=== PATIENT | female | born 1975 ===

== ENCOUNTER 2017-09-28 19:39 | Emergency (ER) | payer SELFPAY ==
[2017-09-28 20:05] VITALS: RESP 18; TEMP 98.1
[2017-09-28 20:07] VITALS: BMI 24.1
[2017-09-28] MEDS ORDERED: Oxycodone/Acetaminophen 5/325 mg Tab PO STA (20:35)
--- NOTE | 2017-09-28 20:38 | ED PDOC ---
Arrival/HPI - General Time Seen by Provider: 09/28/17 20:13 Historian: Patient - History of Present Illness Narrative History of Present Illness (Text): 09/28/17 20:34 Rachel Tanner is a 42 year old female complaining of a headache for the past 3 weeks. Patient is visiting from [place] and has had her headache since she came 3 weeks ago. Patient went to a medical clinic today that her [facility] insurance covered and was given 1 tablet of Captopril to some relief but then was directed to the emergency department for further evaluation. Patient denies any medical or family history of hypertension. No other complaints offered at this time. Time/Duration: < month Symptom Course: Unchanged Activities at Onset: Light Context: Home Past Medical History - Provider Review Nursing Documentation Reviewed: Yes Family/Social History - Physician Review Nursing Documentation Reviewed: Yes Family/Social History: No Known Family HX Allergies/Home Meds Allergies/Adverse Reactions: Allergies No Known Allergies Allergy (Verified 09/28/17 20:33) Review of Systems - Physician Review All systems were reviewed & negative as marked: Yes - Review of Systems Constitutional: absent: Fevers, Night Sweats Eyes: absent: Vision Changes ENT: absent: Hearing Changes Respiratory: absent: SOB, Cough Cardiovascular: absent: Chest Pain Gastrointestinal: absent: Abdominal Pain Genitourinary Female: absent: Dysuria, Frequency Musculoskeletal: absent: Arthralgias Skin: absent: Rash, Pruritis Neurological: Headache Endocrine: absent: Diaphoresis Hemo/Lymphatic: absent: Adenopathy Psychiatric: absent: Anxiety, Depression Physical Exam Vital Signs Reviewed: Yes Vital Signs Temp Pulse Resp BP Pulse Ox 09/28/17 22:01 74 18 134/98 H 100 09/28/17 20:04 98.1 F 88 18 148/92 H 99 Temperature: Afebrile Blood Pressure: Hypertensive Pulse: Regular Respiratory Rate: Normal Appearance: Positive for: Well-Appearing, Non-Toxic, Comfortable Pain Distress: None Mental Status: Positive for: Alert and Oriented X 3 - Systems Exam Head: Present: Atraumatic, Normocephalic Pupils: Present: PERRL Extroacular Muscles: Present: EOMI Conjunctiva: Present: Normal Mouth: Present: Moist Mucous Membranes Neck: Present: Normal Range of Motion Respiratory/Chest: Present: Clear to Auscultation, Good Air Exchange. No: Respiratory Distress, Accessory Muscle Use Cardiovascular: Present: Regular Rate and Rhythm, Normal S1, S2. No: Murmurs Abdomen: No: Tenderness, Distention, Peritoneal Signs Back: Present: Normal Inspection Upper Extremity: Present: Normal Inspection. No: Cyanosis, Edema Lower Extremity: Present: Normal Inspection. No: Edema Neurological: Present: GCS=15, CN II-XII Intact, Speech Normal Skin: Present: Warm, Dry, Normal Color. No: Rashes Psychiatric: Present: Alert, Oriented x 3, Normal Insight, Normal Concentration Medical Decision Making ED Course and Treatment: 09/28/17 20:39 Impression: 42 year old female complaining of a headache for the past 3 weeks. Plan: -- Flexeril, Motrin, Zofran, and Percocet -- Head CT w/o contrast -- Reassess and disposition Progress Notes: EXAM: CT Head Without Intravenous Contrast Dictated and Authenticated by: Wendy Eduardo MD 09/28/2017 9:37 PM IMPRESSION: No acute findings. - RAD Interpretation Radiology Orders: 09/28/17 21:14 HEAD W/O CONTRAST [CT] Stat - Medication Orders Current Medication Orders: Discontinued Medications Clonidine HCl (Catapres) 0.1 mg PO STAT STA Stop: 09/28/17 23:13 Cyclobenzaprine HCl (Flexeril) 5 mg PO STAT STA Stop: 09/28/17 20:36 Last Admin: 09/28/17 20:51 Dose: 5 mg Ibuprofen (Motrin Tab) 600 mg PO STAT STA Stop: 09/28/17 20:36 Last Admin: 09/28/17 20:50 Dose: 600 mg MAR Pain/Vitals Document 09/28/17 20:50 RD (Rec: 09/28/17 20:51 RD [id number]) Pain Reassessment Is This A Pain ReAssessment? No Sleep Is patient sleeping during reassessment? No Presence of Pain Presence of Pain Yes Pain Scale Used Pain Scale Used Numeric Location Pain Location Body Prosthetic Aides Teacher Description Constant Intensity 7 Scale Used Numeric Ondansetron HCl (Zofran Odt) 8 mg PO STAT STA Stop: 09/28/17 20:36 Last Admin: 09/28/17 20:51 Dose: 8 mg Oxycodone/Acetaminophen (Percocet 5/325 Mg Tab) 2 tab PO STAT STA Stop: 09/28/17 20:36 Last Admin: 09/28/17 20:51 Dose: 2 tab MAR Pain Assessment Document 09/28/17 20:51 RD (Rec: 09/28/17 20:51 RD [id number]) Pain Reassessment Is this a pain reassessment? No Sleep Is patient sleeping during reassessment? No Presence of Pain Presence of Pain Yes Location Pain Location Body Prosthetic Aides Teacher Description Description Constant Acceptable Level of Pain 7 Pain Behavior Irritability - Scribe Statement The provider has reviewed the documentation as recorded by the Pranay Garcia Provider Scribe Attestation: All medical record entries made by the Chemoibe were at my direction and personally dictated by me. I have reviewed the chart and agree that the record accurately reflects my personal performance of the history, physical exam, medical decision making, and the department course for this patient. I have also personally directed, reviewed, and agree with the discharge instructions and disposition. Disposition/Present on Arrival - Present on Arrival Any Indicators Present on Arrival: No History of DVT/PE: No History of Uncontrolled Diabetes: No Urinary Catheter: No History of Decub. Ulcer: No History Surgical Site Infection Following: None - Disposition Have Diagnosis and Disposition been Completed?: Yes Diagnosis: Cephalgia, Hypertension Disposition: HOME/ ROUTINE Disposition Time: 23:22 Patient Plan: Discharge Condition: GOOD Discharge Instructions (ExitCare): High Blood Pressure in Adults, Tension Headache Additional Instructions: Rachel Combs- See your doctors as soon as you get home. Vladimir- Dr. Rafa Meza Prescriptions: cloNIDine [clonidine HCl] 0.1 mg PO TID #9 tab Ondansetron ODT [Zofran ODT] 8 mg PO TID #30 odt oxyCODONE/Acetaminophen [Percocet 5/325 mg Tab] 1 ea PO QID #20 tab Referrals: PCP,NO [Primary Care Provider] - Follow up with primary
[2017-09-28 22:02] VITALS: O2SAT 100
[2017-09-29 00:04] VITALS: BP 140/89; PULSE 67
--- NOTE | 2017-09-29 10:01 | CT ---
PROCEDURE: CT HEAD WITHOUT CONTRAST. HISTORY: Intense Headache COMPARISON: None available. TECHNIQUE: Axial computed tomography images were obtained through the head/brain without intravenous contrast. Radiation dose: Total exam DLP = 1107 mGy-cm. This CT exam was performed using one or more of the following dose reduction techniques: Automated exposure control, adjustment of the mA and/or kV according to patient size, and/or use of iterative reconstruction technique. FINDINGS: HEMORRHAGE: No intracranial hemorrhage. BRAIN: No mass effect or edema. No atrophy or chronic microvascular ischemic changes. VENTRICLES: Unremarkable. No hydrocephalus. CALVARIUM: Unremarkable. PARANASAL SINUSES: Unremarkable as visualized. No significant inflammatory changes. MASTOID AIR CELLS: Unremarkable as visualized. No inflammatory changes. OTHER FINDINGS: The report concurs with the preliminary [facility] report IMPRESSION: No acute findings
== END 2017-09-29 00:02 | disposition home or self-care (01) ==
LOC: ED 19:39
DX: I10 Essential (primary) hypertension (principal); R51 Headache